=== PATIENT | female | born 1970 | race Caucasian/White ===

== ENCOUNTER 2020-02-05 17:54 | Emergency (ER) | payer MEDICARE, MEDICAID ==
[~2020-02-05] VITALS: Ht 157.5 cm; Wt 99.1 kg
[2020-02-05 18:06] VITALS: BP 106/73; TEMP 97.5
[2020-02-05] MEDS ORDERED: NORCO 325 MG-51 TAB PO (19:47)
[2020-02-05] MEDS ORDERED: VALIUM 5MG T5 MG/TAB PO (19:47)
[2020-02-05 19:59] VITALS: PULSE 74
== END 2020-02-05 20:13 | disposition home or self-care (01) ==
LOC: COL.ER 17:54
DX: S33.9XXA Sprain of unspecified parts of lumbar spine and pelvis, initial encounter (principal); M54.17 Radiculopathy, lumbosacral region; Z88.1 Allergy status to other antibiotic agents; Z88.6 Allergy status to analgesic agent; Z90.49 Acquired absence of other specified parts of digestive tract; Z90.710 Acquired absence of both cervix and uterus; X50.1XXA Overexertion from prolonged static or awkward postures, initial encounter
CPT/HCPCS: J1170; J2360; J3010

== ENCOUNTER 2020-02-14 17:39 | Emergency (ER) | payer MEDICARE, MEDICAID ==
[~2020-02-14] VITALS: Ht 157.5 cm; Wt 99.1 kg
[~2020-02-14 17:39] MED LIST: NORCO 325 MG-51 TAB PO; VALIUM 5MG T5 MG/TAB PO
[2020-02-14 17:52] VITALS: BP 127/83; TEMP 97.9
[2020-02-14 18:44] VITALS: PULSE 76
== END 2020-02-14 18:44 | disposition home or self-care (01) ==
LOC: COL.ER 17:39
DX: S43.402A Unspecified sprain of left shoulder joint, initial encounter (principal); S53.402A Unspecified sprain of left elbow, initial encounter; S63.502A Unspecified sprain of left wrist, initial encounter; W01.0XXA Fall on same level from slipping, tripping and stumbling without subsequent striking against object, initial encounter; Y92.410 Unspecified street and highway as the place of occurrence of the external cause

== ENCOUNTER 2020-10-18 09:43 | Emergency (ER) | payer OTHER, MEDICARE, MEDICAID ==
[~2020-10-18] VITALS: Ht 157.5 cm; Wt 102.3 kg
[~2020-10-18 09:43] MED LIST changes: +IMITREX100 MG PO; +INDERAL 20MG20 MG PO; +LEXAPRO20 MG PO; +MOBIC 7.5MG7.5 MG PO; +VENTOLIN0.09 MG IH; +WELLBUTRIN XL300 M1 PO; +ZOVIRAX 200MG200 MG PO; +ZYBAN150 M1
[2020-10-18 09:44] VITALS: TEMP 98.3
[2020-10-18] MEDS ORDERED: AMBIEN 5MG TABLE5 MG PO (09:56)
[2020-10-18] MEDS ORDERED: INDERAL40 MG PO (09:56)
[2020-10-18] MEDS ORDERED: MAG-OX 400400 MG/TAB PO (09:56)
[2020-10-18] MEDS ORDERED: FLEXERIL 1010 MG/TAB PO (09:56)
[2020-10-18 10:08] VITALS: BP 127/78; PULSE 88
[2020-10-18 10:56] LABS: BASO % 0.9 % (0.0-2.0); EOS # 0.3 (0.0-0.7); GRAN # 2.3 (1.4-6.5); GRAN % 50.1 % (42.2-75.2); HEMATOCRIT 39.1 % (37.0-47.0); HEMOGLOBIN 12.5 g/dl (12.5-16.0); LYMPH # 1.4 (1.2-3.4); LYMPH % 30.3 % (20.0-51.0); MEAN CELL VOLUME 95 fl (80.0-100.0); MEAN CORPUSCULAR HEMOGLOBIN 30 pg (27.0-31.0); MEAN CORPUSCULAR HGB CONC 32 g/dl (33.0-37.0); MEAN PLATELET VOLUME 9.9 fl (7.4-10.4); MONO # 0.6 (0.1-0.6); MONO % 12.5 % (1.7-9.3); PLATELET COUNT 336 K/mm3 (130-400); RED BLOOD COUNT 4.13 M/mm3 (4.10-5.30); REDCELL DISTRIBUTION WIDTH-CV 12.7 % (11.5-14.5)
[2020-10-18 10:57] LABS: ALANINE AMINOTRANSFERASE 21 U/L (4-34); ALBUMIN 3.3 gm/dL (3.5-5.0); ALKALINE PHOSPHATASE 62 U/L (50-136); ANION GAP 4 mmol/L (7-16); AST,SGOT 23 U/L (15-37); BILIRUBIN,TOTAL 0.4 mg/dL (0.0-1.0); BLOOD UREA NITROGEN 17 mg/dL (7-17); CALCIUM 8.6 mg/dL (8.4-10.2); CARBON DIOXIDE 28 mmol/L (22-30); CHLORIDE 103 mmol/L (98-107); CREATININE, serum 0.66 (0.52-1.25); GLUCOSE 141 mg/dL (74-106); POTASSIUM 4.3 mmol/L (3.4-5.0); SODIUM 135 mmol/L (137-145)
[2020-10-18 11:23] LABS: TROPONIN-I < 0.012 ng/mL (0.000-0.035)
[2020-12-14] MEDS ORDERED: RISPERDAL 0.5M0.5 MG PO (12:06)
[2020-12-14] MEDS ORDERED: MAG-OX 400400 MG/TAB PO (12:36)
[2020-12-14] MEDS ORDERED: INDERAL40 MG PO (12:37)
[2020-12-14] MEDS ORDERED: AMBIEN 5MG TABLE5 MG PO (12:37)
[2020-12-14] MEDS ORDERED: LIORESAL20 MG PO (12:38)
[2020-12-14] MEDS ORDERED: NEURONTIN600 MG/TAB PO (12:39)
== END 2020-10-18 13:10 | disposition home or self-care (01) ==
LOC: COL.ER 09:43
PROVIDERS: Emergency Medicine
DX: R55 Syncope and collapse (principal); R51.9 Headache, unspecified; Z88.6 Allergy status to analgesic agent; Z88.1 Allergy status to other antibiotic agents; Z88.8 Allergy status to other drugs, medicaments and biological substances
CPT/HCPCS: J1885

== ENCOUNTER → 2020-10-24 | Outpatient (CLI) | payer OTHER ==
[~2020-10-24] MED LIST changes: +AMBIEN 5MG TABLE5 MG PO; +AUGMENTIN 250 M1 TAB PO; +FLEXERIL 1010 MG/TAB PO; +INDERAL40 MG PO; +LIORESAL20 MG PO; +MAG-OX 400400 MG/TAB PO; +NEURONTIN600 MG/TAB PO; +PERCOCET 325 MG1 TA2 PO; +PREDNISONE20 MG PO; +RISPERDAL 0.5M0.5 MG PO
== END ==
LOC: COL.CARD 10:22
DX: R55 Syncope and collapse (principal)

== ENCOUNTER 2020-12-14 17:27 | Emergency (ER) | payer MEDICARE, MEDICAID ==
[~2020-12-14] VITALS: Ht 157.5 cm; Wt 102.3 kg
[~2020-12-14 17:27] MED LIST changes: -AUGMENTIN 250 M1 TAB PO; -PERCOCET 325 MG1 TA2 PO; -PREDNISONE20 MG PO
[2020-12-14 18:28] LABS: BASO % 0.6 % (0.0-2.0); EOS # 0.3 (0.0-0.7); EOS % 3.9 % (0-4.0); GRAN # 3.8 (1.4-6.5); GRAN % 53.5 % (42.2-75.2); HEMATOCRIT 39.9 % (37.0-47.0); LYMPH # 2.2 (1.2-3.4); LYMPH % 31.2 % (20.0-51.0); MEAN CELL VOLUME 94 fl (80.0-100.0); MEAN CORPUSCULAR HEMOGLOBIN 31 pg (27.0-31.0); MEAN CORPUSCULAR HGB CONC 33 g/dl (33.0-37.0); MEAN PLATELET VOLUME 9.6 fl (7.4-10.4); MONO # 0.7 (0.1-0.6); MONO % 10.2 % (1.7-9.3); PLATELET COUNT 413 K/mm3 (130-400); RED BLOOD COUNT 4.23 M/mm3 (4.10-5.30); REDCELL DISTRIBUTION WIDTH-CV 12.8 % (11.5-14.5)
[2020-12-14 18:39] LABS: BILIRUBIN,TOTAL 0.4 mg/dL (0.0-1.0); CALCIUM 9.5 mg/dL (8.4-10.2); CREATININE, serum 0.89 (0.52-1.25); POTASSIUM 3.4 mmol/L (3.4-5.0); TOTAL PROTEIN 7.4 gm/dL (6.4-8.2)
[2020-12-14] MEDS ORDERED: PERCOCET 325 MG1 TA2 PO (18:57)
[2020-12-14] MEDS ORDERED: PREDNISONE20 MG PO (18:57)
[2020-12-14 19:26] VITALS: BP 109/58; PULSE 75
== END 2020-12-14 19:38 | disposition home or self-care (01) ==
LOC: COL.ER 17:27
PROVIDERS: Personal Emergency Response Attendant
DX: M06.9 Rheumatoid arthritis, unspecified (principal); M35.00 Sjogren syndrome, unspecified; G43.909 Migraine, unspecified, not intractable, without status migrainosus; Z88.6 Allergy status to analgesic agent; Z88.1 Allergy status to other antibiotic agents; Z88.8 Allergy status to other drugs, medicaments and biological substances
CPT/HCPCS: J2405; J3010; J7030

== ENCOUNTER 2020-12-16 02:26 | Emergency (ER) | payer MEDICARE, MEDICAID ==
[~2020-12-16] VITALS: Ht 157.5 cm; Wt 102.3 kg
[~2020-12-16 02:26] MED LIST changes: +PERCOCET 325 MG1 TA2 PO; +PREDNISONE20 MG PO
[2020-12-16 03:18] LABS: COLLECTION METHOD CLEAN CATCH
[2020-12-16 03:25] LABS: PH 6 (5-8); SQUAMOUS EPITHELIAL None Seen /hpf; URINE APPEARANCE Clear; URINE BACTERIA None Seen /hpf; URINE BILIRUBIN Negative (NEGATIVE); URINE BLOOD Negative (NEGATIVE); URINE COLOR Colorless; URINE GLUCOSE Negative (NEGATIVE); URINE KETONE Negative (NEGATIVE); URINE LEUKOCYTE ESTERASE Negative (NEGATIVE); URINE NITRATE Negative (NEGATIVE); URINE PROTEIN(semi-quant) Negative (NEGATIVE); URINE RBC None Seen /hpf; URINE UROBILINOGEN Negative (NEGATIVE); URINE WBC None Seen /hpf
[2020-12-16 04:25] LABS: BASO % 0.3 % (0.0-2.0); EOS # 0.1 (0.0-0.7); EOS % 0.4 % (0-4.0); GRAN # 7.7 (1.4-6.5); GRAN % 68.4 % (42.2-75.2); HEMATOCRIT 37.8 % (37.0-47.0); HEMOGLOBIN 12.5 g/dl (12.5-16.0); LYMPH # 2.1 (1.2-3.4); MEAN CELL VOLUME 94 fl (80.0-100.0); MEAN CORPUSCULAR HEMOGLOBIN 31 pg (27.0-31.0); MEAN CORPUSCULAR HGB CONC 33 g/dl (33.0-37.0); MEAN PLATELET VOLUME 10.1 fl (7.4-10.4); MONO # 1.3 (0.1-0.6); MONO % 11.5 % (1.7-9.3); PLATELET COUNT 412 K/mm3 (130-400); RED BLOOD COUNT 4.04 M/mm3 (4.10-5.30); REDCELL DISTRIBUTION WIDTH-CV 12.7 % (11.5-14.5)
[2020-12-16 04:36] LABS: ALBUMIN 3.9 gm/dL (3.5-5.0); BILIRUBIN,TOTAL 0.5 mg/dL (0.0-1.0); CALCIUM 9.1 mg/dL (8.4-10.2); CREATININE, serum 0.69 (0.52-1.25); TOTAL PROTEIN 7.2 gm/dL (6.4-8.2)
[2020-12-16 05:40] LABS: ERYTHROCYTE SEDIMENTATION RATE 14 mm/hr (0-20)
[2020-12-16 06:10] VITALS: BP 148/78; PULSE 87; TEMP 97.9
== END 2020-12-16 06:13 | disposition home or self-care (01) ==
LOC: COL.ER 02:26
PROVIDERS: Emergency Medicine
DX: G43.909 Migraine, unspecified, not intractable, without status migrainosus (principal); Z79.899 Other long term (current) drug therapy
CPT/HCPCS: J0595; J1100; J1200; J1885; J2765; J7030

== ENCOUNTER 2020-12-19 09:00 | Outpatient (CLI) | payer MEDICARE, MEDICAID ==
[~2020-12-19] VITALS: Ht 157.5 cm; Wt 102.6 kg
[2020-12-19] VITALS (8 sets, daily range): BP systolic 112–131; BP diastolic 60–99; PULSE 75–81; TEMP 98.1
[2020-12-19] MEDS ORDERED: AUGMENTIN 250 M1 TAB PO (09:23)
--- NOTE | 2020-12-19 10:37 | NUR ---
REPORT TAKEN FROM JOVANA ALEJO IN RADIOLOGY. WILL AWAIT DISCHARGE ORDERS FROM DR NATH.
[2020-12-19 10:47] LABS: GLUCOSE,CSF 122 mg/dL (40-70); TOTAL PROTEIN,CSF 42 mg/dL (15-45)
[2020-12-19 12:31] LABS: CSF APPEARANCE CLEAR; CSF COLOR COLORLESS; CSF MONONUCLEAR 100 % (70-100); CSF POLYMORPHONUCLEAR 0 % (0-6); CSF RBC 22 /mm3 (0-0)
--- NOTE | 2020-12-19 12:43 | NUR ---
PT HAS VOIDED WITH NO COMPLICATIONS, FLUIDS ARE ENCOURAGED AND INTAKE WITH NO N/V, COLORS CUSTODIAN HAS BEEN BY TO DRAW FOR MS WORK UP. PT CAN AMBULATE IN AND AROUND THE UNIT WITH NO COMPLICATIONS. VU BUS WILL ARRIVE AT 2:25PM FOR HER RIDE HOME.
--- NOTE | 2020-12-19 18:29 | NUR ---
VU BUS ARRIVED AT 1415 FOR PT. PT COMPLAINED OF ONE "VISUAL DISTURBANCE" DURING HER WAIT FOR THE VU BUS. PT STATED IT DID RESOLVE. THIS RN ENCOURAGED PT TO CALL HER PHYSICIAN IF THIS WERE TO HAPPEN AGAIN. PT AWARE.
[2020-12-24 16:03] LABS: CSF OLIG BD INTERPRETATION 0 bands (<2); SE OLIGOCLONAL BANDING 0 bands (())
== END 2020-12-19 14:15 | disposition home or self-care (01) ==
LOC: COL.RAD 09:00
PROVIDERS: Family Medicine
DX: H53.9 Unspecified visual disturbance (principal); R41.0 Disorientation, unspecified; R51.9 Headache, unspecified

== ENCOUNTER → 2020-12-28 | Outpatient (CLI) | payer MEDICARE, MEDICAID ==
[~2020-12-28] MED LIST changes: +AUGMENTIN 250 M1 TAB PO
== END ==
LOC: COL.RAD 10:00
DX: R06.02 Shortness of breath (principal)

== ENCOUNTER 2021-01-12 23:26 | Emergency (ER) | payer MEDICARE, MEDICAID ==
[~2021-01-12] VITALS: Ht 157.5 cm; Wt 104.5 kg
[2021-01-12 23:31] VITALS: BP 132/79; TEMP 98.2
[2021-01-13 01:38] VITALS: PULSE 70
== END 2021-01-13 01:45 | disposition home or self-care (01) ==
LOC: COL.ER 23:26
DX: G43.909 Migraine, unspecified, not intractable, without status migrainosus (principal); M35.00 Sjogren syndrome, unspecified; M19.09 Primary osteoarthritis, other specified site; Z88.8 Allergy status to other drugs, medicaments and biological substances; Z79.52 Long term (current) use of systemic steroids; Z79.899 Other long term (current) drug therapy
CPT/HCPCS: J1200; J1885; J2765; J7120

== ENCOUNTER → 2021-01-25 | Outpatient (CLI) | payer MEDICARE, MEDICAID | LOC: COL.PUL 11:00 | DX: L92.9 Granulomatous disorder of the skin and subcutaneous tissue, unspecified (principal); Z90.49 Acquired absence of other specified parts of digestive tract | CPT/HCPCS: Q9967 ==

== ENCOUNTER → 2021-02-05 | Outpatient (CLI) | payer MEDICARE, MEDICAID ==
[2021-02-08 09:43] LABS: A/G RATIO (PEP) 1.01 (()); BETA GLOBULINS (PEP) 1.2 g/dL (0.7-1.2)
== END ==
LOC: COL.LAB 13:26
PROVIDERS: Psychiatry & Neurology Neurology
DX: R20.2 Paresthesia of skin (principal)

== ENCOUNTER 2021-12-29 08:21 | Emergency (ER) | payer MEDICARE, MEDICAID ==
[~2021-12-29] VITALS: Ht 157.5 cm; Wt 110.9 kg
[2021-12-29 08:31] VITALS: TEMP 98.2
[2021-12-29] MEDS ORDERED: ROBAXIN 75750 MG/TAB PO (09:22)
[2021-12-29 09:40] VITALS: BP 128/72; PULSE 80
== END 2021-12-29 09:45 | disposition home or self-care (01) ==
LOC: COL.ER 08:21
DX: M25.562 Pain in left knee (principal); X50.0XXA Overexertion from strenuous movement or load, initial encounter
CPT/HCPCS: J1885; L1846

== ENCOUNTER → 2022-01-01 | Outpatient (CLI) | payer MEDICARE, MEDICAID ==
[~2022-01-01] MED LIST changes: +ROBAXIN 75750 MG/TAB PO
== END ==
LOC: COL.LAB 10:23 → COL.VAS 10:24
DX: M25.562 Pain in left knee (principal)

== ENCOUNTER 2023-10-07 21:24 | Emergency (ER) | payer MEDICARE, MEDICAID ==
[~2023-10-07] VITALS: Ht 157.5 cm; Wt 100.0 kg
[2023-10-07 21:27] VITALS: BP 106/68; PULSE 90; TEMP 98.3
[2023-10-07] MEDS ORDERED: Ibuprofen 400 MG TAB PO ONE (22:30)
[2023-10-07] MEDS ORDERED: MOBIC 7.5MG7.5 MG PO (23:07)
== END 2023-10-07 23:42 | disposition home or self-care (01) ==
LOC: COL.ER 21:24
DX: M79.671 Pain in right foot (principal); Z87.39 Personal history of other diseases of the musculoskeletal system and connective tissue; Z87.81 Personal history of (healed) traumatic fracture

== ENCOUNTER 2024-01-30 07:49 | Emergency (ER) | payer MEDICARE, MEDICAID ==
[~2024-01-30] VITALS: Ht 157.5 cm; Wt 106.8 kg
[2024-01-30] MEDS ORDERED: PAXLOVID CO-PA1 EACH PO (09:37)
[2024-01-30 09:55] VITALS: BP 100/66; PULSE 78; TEMP 98.3
== END 2024-01-30 09:53 | disposition home or self-care (01) ==
LOC: COL.ER 07:49
DX: U07.1 COVID-19 (principal)

== ENCOUNTER → 2024-04-18 | Outpatient (CLI) | payer MEDICARE, MEDICAID ==
[~2024-04-18] MED LIST changes: +Iohexol 300 - 10 ML VIAL IV ONE; +PAXLOVID CO-PA1 EACH PO; +Triamcinolone 40 MG/ML 1 ML VIAL IJ ONE
== END ==
LOC: COL.RAD 08:00
DX: M25.572 Pain in left ankle and joints of left foot (principal); M79.671 Pain in right foot
CPT/HCPCS: J0665; J3301; Q9967